=== PATIENT | female | born 1965 | race Caucasian/White ===

== ENCOUNTER 2018-03-08 11:51 | Day surgery (SDC) | payer OTHER | END 2018-03-08 15:54 | disposition home or self-care (01) | LOC: GIL 11:51 | DX: Z12.11 Encounter for screening for malignant neoplasm of colon (principal); K64.8 Other hemorrhoids; E66.9 Obesity, unspecified; Z68.31 Body mass index [BMI] 31.0-31.9, adult | CPT/HCPCS: 45378; 84703 ==